=== PATIENT | male | born 1975 | race Caucasian/White ===

== ENCOUNTER → 2016-07-25 11:41 | Outpatient (CLI) | payer MEDICARE ==
[2016-07-25 12:29] LABS: BASOPHILS 0.4 % (0.0-2.0); EOSINOPHILS 2.9 % (0-7); HEMATOCRIT 44.1 % (42.0-54.0); HEMOGLOBIN 15.4 g/dL (13.5-17.5); IMMATURE GRANULOCYTES 0.2 % (0-5); MCH 32.1 pg (26.0-34.0); MCHC 34.9 g/dL (31.0-37.0); MCV 91.9 fL (80.0-100.0); MEAN PLATELET VOLUME 10.2 fL (7.4-10.4); MONOCYTES 6.9 % (2-11); NEUTROPHILS 47.6 % (40-80); PLATELET COUNT 201 10x3/uL (130-400); RDW 12.5 % (11.5-14.5); WBC 4.5 10x3/uL (4.8-10.8)
[2016-07-25 12:40] LABS: ALBUMIN 4.1 g/dL (3.4-5.0); ALKALINE PHOSPHATASE 55 U/L (46-116); ALT (SGPT) 60 U/L (10-68); CALC OSMOLALITY 277 mosm/kg (275-300); CALCIUM 8.9 mg/dL (8.5-10.1); CARBON DIOXIDE 25.3 mmol/L (21.0-32.0); CHLORIDE - SERUM 104 mmol/L (98-107); GLUCOSE 108 mg/dL (74-106); POTASSIUM - SERUM 4.2 mmol/L (3.5-5.1); SODIUM 139 mmol/L (136-145); UREA NITROGEN 9 mg/dL (7-18); eGFR NON AFRICAN AMERICAN 88 mL/min (90-120)
== END | disposition home or self-care (01) ==
LOC: D.LAB 11:41 → D.MRI 13:00
PROVIDERS: Psychiatry & Neurology Neurology
DX: R51 Headache (principal); I63.239 Cerebral infarction due to unspecified occlusion or stenosis of unspecified carotid artery; I10 Essential (primary) hypertension

== ENCOUNTER 2018-08-14 15:11 | Emergency (ER) | payer MEDICARE ==
[~2018-08-14] VITALS: Ht 185.4 cm; Wt 109.1 kg
[2018-08-14 15:33] VITALS: Ht 185.4 cm; Wt 109.1 kg
[2018-08-14] MEDS ORDERED: ALBUTEROL SULF8.5 GM INH ×2 (15:35→18:06)
[2018-08-14] MEDS ORDERED: FLUTICASONE PRO16 GM NASAL (15:35)
[2018-08-14] MEDS ORDERED: TOPAMAX50 MG PO ×2 (15:36)
[2018-08-14] MEDS ORDERED: LISINOPRIL10 MG PO (15:36)
[2018-08-14] MEDS ORDERED: CELEXA40 MG PO (15:37)
[2018-08-14] MEDS ORDERED: PRAVACHOL20 MG PO (15:37)
[2018-08-14] MEDS ORDERED: PLAVIX75 MG PO (15:37)
[2018-08-14] MEDS ORDERED: DULERA 200 MCG8.8 GM INH (15:38)
[2018-08-14] MEDS ORDERED: VITAMIN B-121000 MCG PO (15:38)
[2018-08-14] MEDS ORDERED: BENADRYL25 MG PO (15:38)
[2018-08-14 16:59] LABS: BASOPHILS 0.7 % (0-2); EOSINOPHILS 4.8 % (0-7); HEMATOCRIT 43.6 % (42.0-54.0); HEMOGLOBIN 15.4 g/dL (13.5-17.5); IMMATURE GRANULOCYTES 0.2 % (0-5); LYMPHOCYTES 44.5 % (15-50); MCH 32.6 pg (26.0-34.0); MCHC 35.3 g/dL (31.0-37.0); MCV 92.4 fL (80.0-100.0); MEAN PLATELET VOLUME 10.6 fL (7.4-10.4); MONOCYTES 7.3 % (2-11); NEUTROPHILS 42.5 % (40-80); PLATELET COUNT 214 10x3/uL (130-400); RBC 4.72 10x6/uL (4.20-6.10); RDW 12.7 % (11.5-14.5); WBC 5.8 10x3/uL (4.8-10.8)
[2018-08-14 17:07] LABS: APTT 32.8 SECONDS (22.8-39.4); INR 1.25 (0.85-1.17); PROTIME 15.1 SECONDS (11.6-15.0)
[2018-08-14 17:14] LABS: ALBUMIN 3.7 g/dL (3.4-5.0); ALKALINE PHOSPHATASE 91 U/L (46-116); ALT (SGPT) 49 U/L (10-68); BILIRUBIN - TOTAL 0.22 mg/dL (0.2-1.3); CALC OSMOLALITY 275 mosm/kg (275-300); CALCIUM 8.7 mg/dL (8.5-10.1); CARBON DIOXIDE 21.1 mmol/L (21.0-32.0); CHLORIDE - SERUM 103 mmol/L (98-107); GLUCOSE 122 mg/dL (74-106); POTASSIUM - SERUM 3.9 mmol/L (3.5-5.1); PROTEIN - SERUM 7.9 g/dL (6.4-8.2); SODIUM 138 mmol/L (136-145); UREA NITROGEN 9 mg/dL (7-18); eGFR NON AFRICAN AMERICAN 87 mL/min (90-120)
[2018-08-14 17:27] LABS: CKMB 0.7 U/L (0.0-3.6); CREATINE KINASE 331 UL (21-232); PRO BNP 14 pg/mL (0-125)
[2018-08-14 17:36] LABS: TROPONIN-I < 0.017 ng/mL (0.000-0.060)
[2018-08-14] MEDS ORDERED: KEFLEX500 MG PO (18:06)
[2018-08-14] MEDS ORDERED: HYDROCODON-ACE1 EAC2 PO (18:11)
[2018-08-14 18:53] VITALS: BP 128/70
== END 2018-08-14 18:54 | disposition home or self-care (01) ==
LOC: D.ER 15:11
PROVIDERS: Emergency Medicine
DX: J40 Bronchitis, not specified as acute or chronic (principal); H60.91 Unspecified otitis externa, right ear

== ENCOUNTER 2019-07-24 11:47 | Emergency (ER) | payer MEDICARE ==
[~2019-07-24] VITALS: Ht 185.4 cm; Wt 109.1 kg
[~2019-07-24 11:47] MED LIST: ALBUTEROL SULF8.5 GM INH; BENADRYL25 MG PO; CELEXA40 MG PO; DULERA 200 MCG8.8 GM INH; FLUTICASONE PRO16 GM NASAL; HYDROCODON-ACE1 EAC2 PO; KEFLEX500 MG PO; LISINOPRIL10 MG PO; NEURONTIN 300300 MG PO; PLAVIX75 MG PO; PRAVACHOL20 MG PO; PRAVASTATIN SOD10 MG PO; TOPAMAX50 MG PO; VITAMIN B-121000 MCG PO
[2019-07-24 12:18] VITALS: BP 136/79; Ht 185.4 cm; Wt 109.1 kg
[2019-07-24 12:41] LABS: BASOPHILS 0.6 % (0-2); EOSINOPHILS 4.5 % (0-7); HEMATOCRIT 45.3 % (42.0-54.0); HEMOGLOBIN 15.9 g/dL (13.5-17.5); IMMATURE GRANULOCYTES 0.2 % (0-5); LYMPHOCYTES 32.1 % (15-50); MCH 32.6 pg (26.0-34.0); MCHC 35.1 g/dL (31.0-37.0); MCV 92.8 fL (80.0-100.0); MEAN PLATELET VOLUME 10.1 fL (7.4-10.4); MONOCYTES 6.6 % (2-11); PLATELET COUNT 203 10x3/uL (130-400); RBC 4.88 10x6/uL (4.20-6.10); RDW 12.7 % (11.5-14.5); WBC 4.7 10x3/uL (4.8-10.8)
[2019-07-24 12:50] LABS: CALC OSMOLALITY 275 mosm/kg (275-300); CALCIUM 8.6 mg/dL (8.5-10.1); CARBON DIOXIDE 25.6 mmol/L (21.0-32.0); CHLORIDE - SERUM 104 mmol/L (98-107); GLUCOSE 112 mg/dL (74-106); POTASSIUM - SERUM 3.9 mmol/L (3.5-5.1); SODIUM 138 mmol/L (136-145); UREA NITROGEN 9 mg/dL (7-18); eGFR NON AFRICAN AMERICAN 87 mL/min (90-120)
[2019-07-24 12:55] LABS: ALBUMIN 3.9 g/dL (3.4-5.0); ALKALINE PHOSPHATASE 86 U/L (46-116); ALT (SGPT) 59 U/L (10-68)
[2019-07-24] MEDS ORDERED: VOLTAREN75 MG PO (15:23)
== END 2019-07-24 16:15 | disposition home or self-care (01) ==
LOC: D.ER 11:47
PROVIDERS: Emergency Medicine
DX: L03.115 Cellulitis of right lower limb (principal); Z86.73 Personal history of transient ischemic attack (TIA), and cerebral infarction without residual deficits; I10 Essential (primary) hypertension; Z72.0 Tobacco use